=== PATIENT | female | born 1950 | race Caucasian/White ===

== ENCOUNTER → 2017-01-10 16:34 | Outpatient (CLI) | payer OTHER ==
[2015-04-08 07:49] VITALS: BMI 35.8
[~2017-01-10 16:34] MED LIST: FLUTICASONE PRO16 GM NASAL; MULTIPLE VITAMI1 TA1 PO; NORVASC10 MG PO; REQUIP1 MG PO; SYNTHROID100 MCG PO; VIMOVO 375-201 EACH PO; VIMOVO 500-201 EACH PO; XANAX0.5 MG PO; ZYRTEC10 MG PO
== END | disposition home or self-care (01) ==
LOC: D.MAMMO 08:00
DX: Z12.31 Encounter for screening mammogram for malignant neoplasm of breast (principal)

== ENCOUNTER → 2018-02-04 18:28 | Outpatient (CLI) | payer MEDICARE, OTHER ==
[2015-04-08 07:49] VITALS: BMI 35.8
== END | disposition home or self-care (01) ==
LOC: D.MAMMO 11:30
DX: Z12.31 Encounter for screening mammogram for malignant neoplasm of breast (principal)

== ENCOUNTER 2019-02-06 09:00 | Outpatient (CLI) | payer MEDICARE, OTHER ==
[2015-04-08 07:49] VITALS: BMI 35.8
== END 2019-02-06 10:00 | disposition home or self-care (01) ==
LOC: D.MAMMO 09:00
PROVIDERS: ATTEND Emergency Medicine
DX: Z12.31 Encounter for screening mammogram for malignant neoplasm of breast (principal)

== ENCOUNTER 2020-05-06 08:00 | Outpatient (CLI) | payer MEDICARE, OTHER ==
[2015-04-08 07:49] VITALS: BMI 35.8
== END 2020-05-06 15:59 | disposition home or self-care (01) ==
LOC: D.MAMMO 08:00
PROVIDERS: ATTEND Emergency Medicine
DX: Z12.31 Encounter for screening mammogram for malignant neoplasm of breast (principal)